=== PATIENT | female | born 1955 | race Caucasian/White ===

== ENCOUNTER 2017-05-11 10:12 | Outpatient (CLI) | payer MEDICARE ==
--- NOTE | 2017-05-11 16:53 | CT ---
CT PULMONARY SCREENING SCAN: Date: 05/11/17 HISTORY: Smoked for 30 years. Quit 6 years ago. COMPARISON: 04/17/16. TECHNIQUE: Noncontrast low dose screening CT performed per department protocol. FINDINGS: Lung Screening Specific (Lung-RADS): Negative. No suspicious findings for lung cancer. Potential Significant Incidentals (Lung-RADS Category S): None. Pulmonary Incidentals: Minimal linear opacities suggesting scar in lingula and lower lobes. Opacific ation is unchanged. Other Incidentals: Coronary artery calcifications identified. There appears to be small diverticulum emanating from the stomach with a small focus of air. Diverticulum measures 2.3 cm. IMPRESSION: 1. Lung-RADS Category 1 - negative exam. No evidence of primary lung cancer. 2. Lung-RADS Category 2 - negative. No unknown potential significant incidental findings requiring u rgent additional evaluation. RECOMMENDATION: Annual low dose screening CT in 1 year. POS: [facility]
== END 2017-05-11 10:13 | disposition home or self-care (01) ==
LOC: CT 10:12
PROVIDERS: ATTEND Family Medicine
DX: Z12.2 Encounter for screening for malignant neoplasm of respiratory organs (principal); Z00.00 Encounter for general adult medical examination without abnormal findings; Z87.891 Personal history of nicotine dependence
CPT/HCPCS: G0297

== ENCOUNTER 2017-05-18 09:34 | Outpatient (CLI) | payer MEDICARE ==
--- NOTE | 2017-05-18 13:22 | MMO ---
BILATERAL SCREENING MAMMOGRAM: Date: 05/18/17 COMPARISON: 04/17/16, 04/12/15, and 04/07/14. HISTORY: Screening mammography. FINDINGS: This patient's mammogram was interpreted with the assistance of computer-aided detection. The breasts are primarily fatty replaced. There is benign microcalcification noted on the right. There is no dominant mass or architectural dis tortion. No concerning microcalcifications seen. IMPRESSION: BIRADS 2: Benign Finding(s) Annual screening mammography recommended. POS: [facility]
== END 2017-05-18 09:35 | disposition home or self-care (01) ==
LOC: SCSMAMMO 09:34
PROVIDERS: ATTEND Family Medicine
DX: Z12.31 Encounter for screening mammogram for malignant neoplasm of breast (principal)
CPT/HCPCS: 77067; G0202

== ENCOUNTER 2018-06-18 10:29 | Outpatient (CLI) | payer MEDICARE ==
--- NOTE | 2018-06-18 14:28 | MMO ---
BILATERAL SCREENING MAMMOGRAM: HISTORY: Screening COMPARISON: Mammograms from 2017, 2016, and 2015. TECHNIQUE: Bilateral screening CC and MLO mammograms were performed with computer-aided detection. FINDINGS: The breasts are predominantly fatty. Benign calcifications are present within both breasts. No suspicious mass, architectural distortion. Or microcalcifications IMPRESSION: BI-RADS category 2, benign findings. Continued screening is recommended. BIRADS 2: Benign Finding(s) Routine annual screening mammography (for women over age 40) POS: [facility]
== END 2018-06-18 10:30 | disposition home or self-care (01) ==
LOC: SCSMAMMO 10:29
PROVIDERS: ATTEND Family Medicine
DX: Z12.31 Encounter for screening mammogram for malignant neoplasm of breast (principal)
CPT/HCPCS: 77067

== ENCOUNTER 2018-06-22 10:19 | Outpatient (CLI) | payer MEDICARE ==
--- NOTE | 2018-06-22 13:14 | CT ---
HIGH RESOLUTION NONCONTRAST CT PULMONARY SCREENING SCAN: Date; 06/22/18 HISTORY: Screening evaluation for lung cancer. History of smoking for 30 years. Tobacco abuse. COMPARISON: 05/11/17 and 04/17/16. FINDINGS: There is a linear and slight nodular pleural based density again seen within the region of the right middle lobe, which is stable compared to prior exams, as well as a prior CTA of the chest on 06/15/09 suggesting minimal pleural thickening and scarring. There is no discrete pulmonary nodule, mass, or pleural effusion identified. Mild vascular calcifications are seen in the aortic arch with evidence of vascular calcifications in the coronary arteries. Lack of intravenous contrast limits evaluation of the mediastinal structures, but no definite enlarge d lymph nodes are seen. There is question of a diverticulum involving the fundus of the stomach, but this is a stable finding compared to prior exams. There has been no interval change compared to prior studies. IMPRESSION: 1. Lung-RADS Category 1 - Negative exam. No pulmonary nodules are visualized. Continued annual scree mery with low dose CT scan examination is recommended. 2. Lung-RADS Category S - Negative. No significant incidental findings noted. Vascular calcification s are seen in the coronary arteries, and to a lesser extent thoracic aorta. POS: [facility]
== END 2018-06-22 10:20 | disposition home or self-care (01) ==
LOC: CT 10:19
PROVIDERS: ATTEND Family Medicine
DX: Z87.891 Personal history of nicotine dependence (principal); I25.10 Atherosclerotic heart disease of native coronary artery without angina pectoris; I70.0 Atherosclerosis of aorta
CPT/HCPCS: G0297

== ENCOUNTER 2019-07-13 07:48 | Outpatient (CLI) | payer MEDICARE ==
--- NOTE | 2019-07-13 08:29 | MMO ---
Bilateral MAMMO Bilat Screen [facility]. CLINICAL HISTORY: Patient is 63 years old and is seen for screening. The patient has no family history of breast cancer. The patient has no personal history of cancer. VIEWS: The views performed were: bilateral craniocaudal with tomosynthesis and bilateral mediolateral oblique with tomosynthesis. FILMS COMPARED: The present examination has been compared to prior imaging studies performed at [facility] on 04/12/2015, 05/18/2017 and 06/18/2018, and at [facility] on 04/17/2016. This study has been interpreted with the assistance of computer-aided detection. MAMMOGRAM FINDINGS: The breasts are almost entirely fat. There are no suspicious masses, suspicious calcifications, or new areas of architectural distortion. IMPRESSION: THERE IS NO MAMMOGRAPHIC EVIDENCE OF MALIGNANCY. A ROUTINE FOLLOW-UP MAMMOGRAM IN 1 YEAR IS RECOMMENDED. THE RESULTS OF THIS EXAM WERE SENT TO THE PATIENT. ACR BI-RADS Category 1 - Negative MAMMOGRAPHY NOTE: 1. A negative mammogram report should not delay a biopsy if a dominant of clinically suspicious mass is present. 2. Approximately 10% to 15% of breast cancers are not detected by mammography. 3. Adenosis and dense breasts may obscure an underlying neoplasm. Reported by: KOSTAS SALINAS MD Electonically Signed: [id number]
--- NOTE | 2019-07-13 09:06 | CT ---
CT pulmonary lung scan without IV contrast INDICATION: Lung cancer screening protocol; former smoker with 30+ pack years of smoking history; aide t 9 years ago;personal history of smoking COMPARISON: June 22, 2018 CT pulmonary lung scan. FINDINGS: LUNGS: Nodules\mass: No suspicious nodule demonstrated. Emphysema: There is mild scattered centrilobular emphysema Additional findings: There is scattered coronary artery and thoracic aortic calcifications that appea rs similar to the most recent comparison study. Mediastinum: No lymphadenopathy. Upper abdomen: There is a small gastric diverticulum protruding from the posterior aspect of the ivan pawel cardia Osseous structures: No acute abnormality. There is scattered degenerative and osteoarthritic change p resent. . IMPRESSION: Lung-RADS Category 1: Negative- Continue annual screening with LDCT in 12 months. Category S: Coronary artery and thoracic aortic calcifications. Small gastric diverticulum. Category C: Not applicable.
== END 2019-07-13 07:49 | disposition home or self-care (01) ==
LOC: CT 07:48
PROVIDERS: ATTEND Family Medicine
DX: Z12.31 Encounter for screening mammogram for malignant neoplasm of breast (principal); Z12.2 Encounter for screening for malignant neoplasm of respiratory organs; I70.0 Atherosclerosis of aorta; I25.10 Atherosclerotic heart disease of native coronary artery without angina pectoris; K31.4 Gastric diverticulum; Z87.891 Personal history of nicotine dependence
CPT/HCPCS: 77063; 77067; G0297

== ENCOUNTER 2020-07-13 07:29 | Emergency (ER) | payer MEDICARE, MEDICAID ==
[2020-07-13] MEDS ORDERED: Aspirin Chewable 81 MG TAB ONE (08:15)
[2020-07-13] MEDS ORDERED: Dexamethasone 10 MG/ML VIAL ONE (08:15)
[2020-07-13 08:27] LABS: #Eosinphils 0.1 thou/uL (0.0-0.7); #Lymphocytes 1.1 thou/uL (1.20-3.40); #Monocytes 0.6 thou/uL (0.11-0.59); #Neutrophils 6.5 thou/uL (1.40-6.50); %Basophils 0.5 % (0.0-1.0); %Lymphocytes 12.7 % (21.0-51.0); %Monocytes 7.6 % (0.0-10.0); %Neutrophils 78.1 % (42.0-75.0); Hemoglobin 16.2 g/dL (12.0-16.0); Mean Corpuscular HGB CONC 34.9 g/dL (32.0-36.0); Mean Corpuscular Hemoglobin 31.9 pg (27.0-31.0); Mean Corpuscular Volume 91.3 fL (78.0-98.0); Mean Platelet Volume 7.1 fL (7.4-10.4); Platelet Count 300 thou/uL (130-400); RBC Distribution Width 11.5 % (11.5-14.5); Red Blood Cell (RBC) Count 5.06 mill/uL (4.20-5.40); White Blood Cell (WBC) Count 8.3 thou/uL (4.8-10.8)
[2020-07-13 08:31] LABS: INR-International Normal Ratio 0.9; PTT 33.1 sec (22.9-36.1); Prothrombin Time 12.6 sec (12.0-14.7)
[2020-07-13 08:32] LABS: D-Dimer Test 0.61 *mcg/mL (0.27-0.43)
[2020-07-13] MEDS ORDERED: Albuterol 200 PUFF (6.7GM INHALER) ONE (08:45)
[2020-07-13 08:49] LABS: ALT (SGPT) 17 U/L (8-55); AST (SGOT) 15 U/L (5-34); Albumin 4.4 g/dL (3.4-4.8); Alkaline Phosphatase 101 U/L (40-110); Anion Gap 15 mmol/L (10-20); BUN (Urea Nitrogen) 7 mg/dL (9.8-20.1); Bilirubin, Total 0.5 mg/dL (0.2-1.2); Calc. Creatinine Clearance 0 mL/min (70-130); Calcium 9.5 mg/dL (7.8-10.44); Carbon Dioxide 25 mmol/L (23-31); Chloride 102 mmol/L (98-107); Globulin 4.3 g/dL (2.4-3.5); Glucose 173 mg/dL (80-115); Potassium 3.6 mmol/L (3.5-5.1); Protein, Total 8.7 g/dL (5.8-8.1); Sodium 138 mmol/L (136-145)
[2020-07-13 09:30] LABS: SARS-CoV-2 NAA Rapid Test Not Detected (NotDetected)
[2020-07-13] MEDS ORDERED: Iopamidol-370 76% 500 ML 1 ML ONE (14:00)
== END 2020-07-13 13:33 | disposition home or self-care (01) ==
LOC: ERS 07:29
DX: J44.1 Chronic obstructive pulmonary disease with (acute) exacerbation (principal); Z20.822 Contact with and (suspected) exposure to COVID-19; I10 Essential (primary) hypertension; Z79.899 Other long term (current) drug therapy
CPT/HCPCS: 0240U; 71045; 71275; 80053; 83605; 83880; 84484; 85025; 85379; 85610; 85730; 87040; 93005; 94644; 94760; 96374; 99285; J1100; J7620; Q9967

== ENCOUNTER 2020-08-29 09:55 | Outpatient (CLI) | payer MEDICARE, MEDICAID | END 2020-08-29 09:56 | disposition home or self-care (01) | LOC: BICMAMMO 09:55 | PROVIDERS: ATTEND Family Medicine | DX: Z12.31 Encounter for screening mammogram for malignant neoplasm of breast (principal) | CPT/HCPCS: 77063; 77067 ==

== ENCOUNTER 2021-09-19 12:43 | Outpatient (CLI) | payer MEDICARE, MEDICAID | END 2021-09-19 12:44 | disposition home or self-care (01) | LOC: BICMAMMO 12:43 | PROVIDERS: ATTEND Nurse Practitioner Family | DX: Z12.31 Encounter for screening mammogram for malignant neoplasm of breast (principal) | CPT/HCPCS: 77063; 77067 ==

== ENCOUNTER 2021-09-19 13:16 | Outpatient (CLI) | payer OTHER, MEDICAID | END 2021-09-19 13:17 | disposition home or self-care (01) | LOC: BICCT 13:16 | PROVIDERS: ATTEND Nurse Practitioner Family | DX: Z12.2 Encounter for screening for malignant neoplasm of respiratory organs (principal); Z87.891 Personal history of nicotine dependence; R91.8 Other nonspecific abnormal finding of lung field; I25.10 Atherosclerotic heart disease of native coronary artery without angina pectoris; K31.4 Gastric diverticulum | CPT/HCPCS: 71271 ==

== ENCOUNTER 2022-09-08 15:53 | Inpatient (IN) | payer OTHER, MEDICAID ==
[~2022-09-08 15:53] MED LIST: Iopamidol-370 76% 500 ML MDV (1 ML CHARGE) ONE
[2022-09-08 16:56] LABS: #Lymphocytes 0.9 thou/uL (1.20-3.40); #Monocytes 0.8 thou/uL (0.11-0.59); #Neutrophils 7.9 thou/uL (1.40-6.50); %Basophils 0.2 % (0.0-1.0); %Eosinophils 0.5 % (0.0-10.0); %Monocytes 8.6 % (0.0-10.0); %Neutrophils 81.7 % (42.0-75.0); Hemoglobin 12.6 g/dL (12.0-16.0); Mean Corpuscular Hemoglobin 29.3 pg (27.0-31.0); Mean Corpuscular Volume 86.2 fl (78.0-98.0); Mean Platelet Volume 6.6 fL (7.4-10.4); Platelet Count 319 10x3/uL (130-400); RBC Distribution Width 12.8 % (11.5-14.5); White Blood Cell (WBC) Count 9.6 10x3/uL (4.8-10.8)
[2022-09-08] MEDS ORDERED: Acetaminophen 500 MG TAB ONE (17:17)
[2022-09-08] MEDS ORDERED: Cefepime 2 GM VIAL ONE (17:17)
[2022-09-08 17:19] LABS: ALT (SGPT) 15 U/L (8-55); AST (SGOT) 22 U/L (5-34); Actual Bicarbonate (HCO3v) 24 mEq/L (22-28); Albumin 3.6 g/dL (3.4-4.8); Alkaline Phosphatase 83 U/L (40-110); Anion Gap 14 mmol/L (10-20); BUN (Urea Nitrogen) 9 mg/dL (9.8-20.1); Base Excess 0.5 mEq/L (-2.0 to +3.0); Bilirubin, Total 0.6 mg/dL (0.2-1.2); Calc. Creatinine Clearance 0 mL/min (70-130); Calcium 9.4 mg/dL (7.8-10.44); Carbon Dioxide 22 mmol/L (23-31); Chloride 96 mmol/L (98-107); Chloride (VBG) 94 mmol/L (98-106); Estimated GFR 88; Globulin 4.7 g/dL (2.4-3.5); Glucose 129 mg/dL (80-115); Hemoglobin (Hb) 13.6 g/dL (11.7-16.1); Potassium 4.4 mmol/L (3.5-5.1); Potassium (VBG) 4.64 mmol/L (3.70-5.30); Protein, Total 8.3 g/dL (5.8-8.1); Sodium 128 mmol/L (136-145); Sodium 128.2 mmol/L (133-146); pH (venous) 7.44 (7.32-7.43)
[2022-09-08] MEDS ORDERED: VANCOMYCIN 1.75 GM/500 ML BAG 1.75 GM in Premix Bag 1 BAG IVPB SCH (17:30)
[2022-09-08 18:01] LABS: INR-International Normal Ratio 1.1; PTT 31.1 sec (22.9-36.1); Prothrombin Time 14.4 sec (12.0-14.7)
[2022-09-08 18:29] LABS: Bacteria/HPF None Seen HPF (None Seen); Bilirubin Negative (Negative); Blood, Urine 2+ (Negative); Clarity Clear (Clear); Glucose, Urine (Dipstick) Normal (Negative); Ketone, Urine Negative (Negative); Leukocyte 500 Leu/uL (Negative); Nitrite Negative (Negative); Protein, Urine (Dipstick) Negative (Neg-Trace); Squamous Epithelial 0-3 HPF (0-3); Urobilinogen Normal mg/dL (Less than 2); WBC/HPF 21-50 HPF (0-3)
[2022-09-08] MEDS ORDERED: Ketorolac Tromethamine 30 MG/ML VIAL ONE (19:17)
[2022-09-08 20:57] LABS: SARS-CoV-2 NAA Rapid Test Not Detected (NotDetected)
[2022-09-08] MEDS ORDERED: Ondansetron ODT 4 MG TAB PO PRN (21:22)
[2022-09-08] MEDS ORDERED: HYDROcodone/Acetaminophen 5/325 mg Tablet PO PRN (21:22)
[2022-09-08] MEDS ORDERED: Ondansetron PF 4 MG/2 ML Vial IVP PRN (21:22)
[2022-09-08 22:48] VITALS: BMI 30.9
[2022-09-08 23:02] LABS: Anion Gap 11 mmol/L (10-20); BUN (Urea Nitrogen) 8 mg/dL (9.8-20.1); Calc. Creatinine Clearance 108 mL/min (70-130); Carbon Dioxide 19 mmol/L (23-31); Chloride 104 mmol/L (98-107); Estimated GFR 95; Glucose 107 mg/dL (80-115); Potassium 3.7 mmol/L (3.5-5.1); Sodium 130 mmol/L (136-145)
[2022-09-09] MEDS: Cefepime 1 GM in Sodium Chloride 0.9% 100 ML IVPB SCH ×2 (05:22→16:56)
[2022-09-09 06:16] LABS: #Monocytes 0.8 thou/uL (0.11-0.59); #Neutrophils 6.1 thou/uL (1.40-6.50); %Basophils 0.3 % (0.0-1.0); %Eosinophils 0.2 % (0.0-10.0); %Lymphocytes 12.2 % (21.0-51.0); %Monocytes 10.2 % (0.0-10.0); %Neutrophils 77.1 % (42.0-75.0); Hemoglobin 11.4 g/dL (12.0-16.0); Mean Corpuscular HGB CONC 33.4 g/dL (32.0-36.0); Mean Corpuscular Hemoglobin 28.7 pg (27.0-31.0); Mean Corpuscular Volume 86.1 fl (78.0-98.0); Mean Platelet Volume 7.1 fL (7.4-10.4); Platelet Count 255 10x3/uL (130-400); RBC Distribution Width 12.7 % (11.5-14.5); Red Blood Cell (RBC) Count 3.96 mill/uL (4.20-5.40)
[2022-09-09] MEDS: Acetaminophen 325 MG TAB PO PRN ×2 (08:18→16:56)
[2022-09-09] MEDS: VANCOMYCIN 1.25 GM/250 ML BAG 1.25 GM in Premix Bag 1 BAG IVPB SCH ×2 (08:19→20:46)
[2022-09-09] MEDS ORDERED: Vancomycin 1 GM in Premix Bag 1 BAG IVPB SCH (09:00)
[2022-09-09] MEDS ORDERED: FLU VACC QS2022-23(65YR UP)/PF 240 MCG/0.7 ML SYRINGE IM ONE (09:00)
[2022-09-10] MEDS: Acetaminophen 325 MG TAB PO PRN ×2 (04:44→22:59)
[2022-09-10] MEDS: Cefepime 1 GM in Sodium Chloride 0.9% 100 ML IVPB SCH ×2 (05:30→18:34)
[2022-09-10 07:38] LABS: Vancomycin, Trough 11.4 ug/mL
[2022-09-10] MEDS ORDERED: Vancomycin 1.5 GRAM/300 ML BAG 1.5 GM in Premix Bag 1 BAG IVPB SCH (08:00)
[2022-09-10] MEDS: Lisinopril 20 MG TAB PO SCH (09:16)
[2022-09-10] MEDS: Clindamycin/D5W 900 MG in Premix Bag 1 BAG IVPB SCH ×2 (16:26→22:58)
[2022-09-11] MEDS: Cefepime 1 GM in Sodium Chloride 0.9% 100 ML IVPB SCH (05:57)
[2022-09-11] MEDS: Clindamycin/D5W 900 MG in Premix Bag 1 BAG IVPB SCH ×3 (06:06→23:29)
[2022-09-11] MEDS ORDERED: fentaNYL PF 100 MCG/2 ML SYRINGE ONE (09:49)
[2022-09-11] MEDS ORDERED: Rocuronium Bromide 10 MG/ML (10ML VIAL) ONE (10:02)
[2022-09-11] MEDS ORDERED: Dexamethasone 20 MG/5 ML VIAL ONE (10:02)
[2022-09-11] MEDS ORDERED: PROPOFOL 200 MG/20 ML VIAL ONE (10:02)
[2022-09-11] MEDS ORDERED: Ondansetron PF 4 MG/2 ML Vial ONE (10:02)
[2022-09-11] MEDS ORDERED: Lidocaine 1% PF 5 ML VIAL ONE (10:02)
[2022-09-11] MEDS ORDERED: SUGAMMADEX SODIUM 200 MG/2 ML VIAL ONE (10:19)
[2022-09-11] MEDS: Lisinopril 20 MG TAB PO SCH ×2 (10:26→15:34)
[2022-09-11] MEDS ORDERED: Promethazine HCl 25 MG/ML VIAL IM PRN (10:35)
[2022-09-11] MEDS ORDERED: Ondansetron HCl/PF 4 MG/2 ML Vial IVP PRN (10:35)
[2022-09-11] MEDS: Acetaminophen 325 MG TAB PO PRN (19:01)
[2022-09-12] MEDS: Clindamycin/D5W 900 MG in Premix Bag 1 BAG IVPB SCH ×2 (06:16→14:19)
[2022-09-12 06:42] LABS: #Lymphocytes 1.6 thou/uL (1.20-3.40); #Monocytes 0.6 thou/uL (0.11-0.59); #Neutrophils 4.4 thou/uL (1.40-6.50); %Basophils 0.3 % (0.0-1.0); %Eosinophils 0.3 % (0.0-10.0); %Lymphocytes 24.1 % (21.0-51.0); %Monocytes 8.5 % (0.0-10.0); %Neutrophils 66.9 % (42.0-75.0); Hemoglobin 10.7 g/dL (12.0-16.0); Mean Corpuscular HGB CONC 33.8 g/dL (32.0-36.0); Mean Corpuscular Hemoglobin 29.6 pg (27.0-31.0); Mean Corpuscular Volume 87.4 fl (78.0-98.0); Mean Platelet Volume 7.2 fL (7.4-10.4); Platelet Count 314 10x3/uL (130-400); RBC Distribution Width 12.6 % (11.5-14.5); Red Blood Cell (RBC) Count 3.63 mill/uL (4.20-5.40); White Blood Cell (WBC) Count 6.5 10x3/uL (4.8-10.8)
[2022-09-12 06:54] LABS: Anion Gap 12 mmol/L (10-20); BUN (Urea Nitrogen) 14 mg/dL (9.8-20.1); Calc. Creatinine Clearance 115 mL/min (70-130); Calcium 8.8 mg/dL (7.8-10.44); Carbon Dioxide 23 mmol/L (23-31); Chloride 104 mmol/L (98-107); Estimated GFR 97; Glucose 128 mg/dL (80-115); Sodium 135 mmol/L (136-145)
[2022-09-12] MEDS: Lisinopril 20 MG TAB PO SCH (08:01)
[2022-09-12 17:56] VITALS: BP 153/87; TEMP 98.8
[2022-09-12] MEDS ORDERED: Clindamycin 150 MG CAP PO SCH (22:00)
== END 2022-09-12 17:14 | disposition home or self-care (01) | DRG 853 ==
LOC: ERS 15:53 → T4-B 21:15
PROVIDERS: ADMIT Hospitalist; ATTEND Hospitalist
PROC: 3E03329 Introduction of Other Anti-infective into Peripheral Vein, Percutaneous Approach (ICD-10-PCS; principal; 2022-09-08)
PROC: 0JB90ZZ Excision of Buttock Subcutaneous Tissue and Fascia, Open Approach (ICD-10-PCS; 2022-09-11)
PROC: 0J990ZZ Drainage of Buttock Subcutaneous Tissue and Fascia, Open Approach (ICD-10-PCS; 2022-09-11)
DX: A41.9 Sepsis, unspecified organism (principal); G93.41 Metabolic encephalopathy; N39.0 Urinary tract infection, site not specified; L03.317 Cellulitis of buttock; E87.1 Hypo-osmolality and hyponatremia; Z20.822 Contact with and (suspected) exposure to COVID-19; M06.9 Rheumatoid arthritis, unspecified; S30.860A Insect bite (nonvenomous) of lower back and pelvis, initial encounter; W57.XXXA Bitten or stung by nonvenomous insect and other nonvenomous arthropods, initial encounter; I10 Essential (primary) hypertension; Z28.21 Immunization not carried out because of patient refusal; Z79.899 Other long term (current) drug therapy; Z90.89 Acquired absence of other organs; Z98.51 Tubal ligation status
CPT/HCPCS: 36415; 36416; 70450; 71045; 72193; 76999; 80048; 80053; 80202; 81003; 81015; 82805; 83605; 83615; 83935; 84300; 84443; 84484; 85025; 85610; 85730; 86140; 87040; 87077; 87086; 87480; 87510; 87660; 88304; 93005; 96374; 96375; 97139; J0692; J1100; J1885; J2405; J2704; J3370; J3490; Q9967

== ENCOUNTER 2022-10-05 09:41 | Inpatient (IN) | payer OTHER, MEDICAID ==
[2022-10-05 10:59] LABS: #Lymphocytes 1.2 thou/uL (1.20-3.40); #Monocytes 0.7 thou/uL (0.11-0.59); #Neutrophils 3.5 thou/uL (1.40-6.50); %Basophils 0.9 % (0.0-1.0); %Eosinophils 0.7 % (0.0-10.0); %Lymphocytes 21.6 % (21.0-51.0); %Monocytes 13.3 % (0.0-10.0); %Neutrophils 63.5 % (42.0-75.0); Hemoglobin 13.6 g/dL (12.0-16.0); Mean Corpuscular Hemoglobin 28.9 pg (27.0-31.0); Mean Platelet Volume 6.6 fL (7.4-10.4); Platelet Count 308 10x3/uL (130-400); RBC Distribution Width 13.3 % (11.5-14.5); Red Blood Cell (RBC) Count 4.71 mill/uL (4.20-5.40); White Blood Cell (WBC) Count 5.4 10x3/uL (4.8-10.8)
[2022-10-05 11:19] LABS: ALT (SGPT) 12 U/L (8-55); AST (SGOT) 15 U/L (5-34); Albumin 3.9 g/dL (3.4-4.8); Alkaline Phosphatase 87 U/L (40-110); Anion Gap 12 mmol/L (10-20); BUN (Urea Nitrogen) 7 mg/dL (9.8-20.1); Bilirubin, Total 0.2 mg/dL (0.2-1.2); Calc. Creatinine Clearance 0 mL/min (70-130); Calcium 9.6 mg/dL (7.8-10.44); Carbon Dioxide 23 mmol/L (23-31); Chloride 104 mmol/L (98-107); Estimated GFR 93; Globulin 4.5 g/dL (2.4-3.5); Glucose 137 mg/dL (80-115); Lipase 15 U/L (8-78); Potassium 3.8 mmol/L (3.5-5.1); Protein, Total 8.4 g/dL (5.8-8.1); Sodium 135 mmol/L (136-145)
[2022-10-05 11:52] LABS: Bacteria/HPF None Seen HPF (None Seen); Bilirubin Negative (Negative); Blood, Urine 1+ (Negative); Clarity Clear (Clear); Glucose, Urine (Dipstick) Normal (Negative); Ketone, Urine Negative (Negative); Leukocyte Negative Leu/uL (Negative); Nitrite Negative (Negative); Protein, Urine (Dipstick) Negative (Neg-Trace); RBC/HPF 0-3 HPF (0-3); Specific Gravity, Urine 1.006 (1.002-1.036); Squamous Epithelial 0-3 HPF (0-3); Urobilinogen Normal mg/dL (Less than 2); WBC/HPF 0-3 HPF (0-3); pH, Urine 6.5 (5.0-9.0)
[2022-10-05] MEDS ORDERED: Morphine 4 MG/ML VIAL ONE (13:12)
[2022-10-05] MEDS ORDERED: metroNIDAZOLE 500 MG/100 ML BAG ONE (13:12)
[2022-10-05] MEDS ORDERED: HYDROcodone/Acetaminophen 5/325 mg Tablet PO PRN ×2 (13:54)
[2022-10-05] MEDS ORDERED: Senokot S 8.6-50 MG TAB PO PRN (13:54)
[2022-10-05] MEDS ORDERED: Sodium Chloride 0.9% 1,000 ML IV SCH (14:00)
[2022-10-05 15:37] VITALS: BMI 29.5
[2022-10-05] MEDS ORDERED: Iopamidol-370 76% 500 ML MDV (1 ML CHARGE) ONE (15:47)
[2022-10-05] MEDS ORDERED: Piperacillin/Tazobactam 3.375 GM in Sodium Chloride 0.9% 100 ML IVPB SCH ×2 (18:00→21:00)
[2022-10-05 18:30] LABS: Hemoglobin 11.8 g/dL (12.0-16.0)
[2022-10-05] MEDS: Acetaminophen 325 MG TAB PO PRN (20:56)
[2022-10-05] MEDS: Pantoprazole 40 MG VIAL IVP SCH (20:56)
[2022-10-05] MEDS ORDERED: Famotidine 20 MG TAB PO SCH (21:00)
[2022-10-05 22:32] LABS: Hemoglobin 11.4 g/dL (12.0-16.0)
[2022-10-05] MEDS ORDERED: metroNIDAZOLE 500 MG in Premix Bag 1 BAG IVPB SCH (23:59)
[2022-10-06] MEDS ORDERED: Piperacillin/Tazobactam 3.375 GM in Sodium Chloride 0.9% 100 ML IVPB SCH (04:00)
[2022-10-06 05:47] LABS: Hemoglobin 11.7 g/dL (12.0-16.0); Mean Corpuscular HGB CONC 32.4 g/dL (32.0-36.0); Mean Corpuscular Hemoglobin 27.8 pg (27.0-31.0); Mean Corpuscular Volume 85.7 fl (78.0-98.0); Mean Platelet Volume 6.4 fL (7.4-10.4); Platelet Count 271 10x3/uL (130-400); RBC Distribution Width 13.2 % (11.5-14.5); Red Blood Cell (RBC) Count 4.21 mill/uL (4.20-5.40); White Blood Cell (WBC) Count 4.3 10x3/uL (4.8-10.8)
[2022-10-06 06:00] LABS: Iron 34 ug/dL (50-170); Iron Binding Capacity, Total 241 mcg/dL (265-497)
[2022-10-06 06:10] LABS: ALT (SGPT) 10 U/L (8-55); AST (SGOT) 13 U/L (5-34); Albumin 3.3 g/dL (3.4-4.8); Alkaline Phosphatase 69 U/L (40-110); Anion Gap 14 mmol/L (10-20); BUN (Urea Nitrogen) 6 mg/dL (9.8-20.1); Bilirubin, Total 0.2 mg/dL (0.2-1.2); Calc. Creatinine Clearance 102 mL/min (70-130); Carbon Dioxide 18 mmol/L (23-31); Chloride 109 mmol/L (98-107); Estimated GFR 95; Globulin 3.9 g/dL (2.4-3.5); Glucose 94 mg/dL (80-115); Iron 33 ug/dL (50-170); Iron Binding Capacity, Total 240 mcg/dL (265-497); Potassium 4.1 mmol/L (3.5-5.1); Protein, Total 7.2 g/dL (5.8-8.1); Sodium 137 mmol/L (136-145)
[2022-10-06 07:03] LABS: Eosinophils 2 % (0-10); Lymphocytes 20 % (21-51); MDiff Complete? YES; Monocytes 21 % (0-10); Neutrophil 57 % (42-75); Platelet Morphology Comment Appears Adequate; RBC Morphology Normal
[2022-10-06] MEDS: Pantoprazole 40 MG VIAL IVP SCH (08:05)
[2022-10-06] MEDS: Acetaminophen 325 MG TAB PO PRN (08:05)
[2022-10-06] MEDS ORDERED: Sodium Chloride 0.9% 1,000 ML IV SCH (15:30)
[2022-10-06] MEDS: metroNIDAZOLE 500 MG TAB PO SCH ×2 (17:02→21:21)
[2022-10-06] MEDS: Ciprofloxacin 500 MG TAB PO SCH (20:06)
[2022-10-06] MEDS: Famotidine 20 MG TAB PO SCH (21:21)
[2022-10-07] MEDS: Acetaminophen 325 MG TAB PO PRN (04:16)
[2022-10-07] MEDS: Ciprofloxacin 500 MG TAB PO SCH (05:19)
[2022-10-07 06:21] LABS: Hemoglobin 12.8 g/dL (12.0-16.0); Mean Corpuscular HGB CONC 33.9 g/dL (32.0-36.0); Mean Corpuscular Hemoglobin 29.6 pg (27.0-31.0); Mean Corpuscular Volume 87.3 fl (78.0-98.0); Mean Platelet Volume 6.7 fL (7.4-10.4); Platelet Count 280 10x3/uL (130-400); RBC Distribution Width 13.3 % (11.5-14.5); Red Blood Cell (RBC) Count 4.34 mill/uL (4.20-5.40)
[2022-10-07 06:39] LABS: Anion Gap 12 mmol/L (10-20); BUN (Urea Nitrogen) 9 mg/dL (9.8-20.1); Calc. Creatinine Clearance 104 mL/min (70-130); Calcium 9.2 mg/dL (7.8-10.44); Carbon Dioxide 24 mmol/L (23-31); Chloride 104 mmol/L (98-107); Estimated GFR 95; Glucose 107 mg/dL (80-115); Potassium 4.2 mmol/L (3.5-5.1); Sodium 136 mmol/L (136-145)
[2022-10-07] MEDS ORDERED: Ferrous Sulfate 325 MG TAB PO SCH (08:00)
[2022-10-07] MEDS: metroNIDAZOLE 500 MG TAB PO SCH (08:07)
[2022-10-07] MEDS: Famotidine 20 MG TAB PO SCH (08:07)
[2022-10-07 08:46] VITALS: BP 167/69; TEMP 97.5
[2022-10-07] MEDS ORDERED: Lisinopril 20 MG TAB PO SCH (09:00)
[2022-10-07] MEDS ORDERED: Floranex 1 GM Packet PO SCH (09:00)
== END 2022-10-07 11:59 | disposition home or self-care (01) | DRG 393 ==
LOC: ERS 09:41 → MSONC 13:54 → OBSVTOIN 10-07 08:13
PROVIDERS: ADMIT Family Medicine; ATTEND Internal Medicine
DX: K55.9 Vascular disorder of intestine, unspecified (principal); K57.33 Diverticulitis of large intestine without perforation or abscess with bleeding; L02.31 Cutaneous abscess of buttock; L03.317 Cellulitis of buttock; I10 Essential (primary) hypertension; M06.9 Rheumatoid arthritis, unspecified; F41.9 Anxiety disorder, unspecified; R31.9 Hematuria, unspecified; D50.9 Iron deficiency anemia, unspecified; Z90.89 Acquired absence of other organs; Z98.51 Tubal ligation status; Z79.899 Other long term (current) drug therapy
CPT/HCPCS: 36415; 74177; 80048; 80053; 81003; 81015; 82728; 83540; 83550; 83690; 84484; 85025; 85027; 93005; 96365; 96366; 96368; 96375; 96376; 97139; C9113; G0378; J1956; J2270; J2543; J3490; J7050; Q9967

== ENCOUNTER 2023-04-15 10:25 | Outpatient (CLI) | payer OTHER, MEDICAID | END 2023-04-15 10:26 | disposition home or self-care (01) | LOC: BICCT 10:25 | PROVIDERS: ATTEND Nurse Practitioner Family | DX: Z12.31 Encounter for screening mammogram for malignant neoplasm of breast (principal); Z12.2 Encounter for screening for malignant neoplasm of respiratory organs; J98.11 Atelectasis; R59.0 Localized enlarged lymph nodes; Z87.891 Personal history of nicotine dependence | CPT/HCPCS: 71271; 77063; 77067 ==

== ENCOUNTER 2024-05-30 10:21 | Outpatient (CLI) | payer OTHER, MEDICAID | END 2024-05-30 10:22 | disposition home or self-care (01) | LOC: BICMAMMO 10:21 | PROVIDERS: ATTEND Nurse Practitioner Family | DX: Z12.31 Encounter for screening mammogram for malignant neoplasm of breast (principal); Z12.2 Encounter for screening for malignant neoplasm of respiratory organs; Z87.891 Personal history of nicotine dependence; I25.10 Atherosclerotic heart disease of native coronary artery without angina pectoris | CPT/HCPCS: 71271; 77063; 77067 ==